=== PATIENT | male | born 1975 | race African-American/Black ===

== ENCOUNTER 2016-03-04 01:56 | Emergency (ER) | payer OTHER, MEDICARE ==
[~2016-03-04] VITALS: Ht 172.7 cm; Wt 99.8 kg
[~2016-03-04 01:56] MED LIST: BENTYL20 MG PO; FLEXERIL10 MG PO; IBUPROFEN800 MG PO; MEDROL DOSEPAK1 PAC PO; MOTRIN 600 MG600 MG PO; MOTRIN800 MG PO; NORCO 325 MG-51 TAB PO; PERCOCET 325 MG1 TA2 PO; SKELAXIN800 MG PO; TORADOL10 MG PO; TRAMADOL50 MG PO; ZOFRAN4 M1 SL
--- NOTE | 2016-03-04 02:08 | ED SKIN/ALLERGY COMPLAINT ---
History of Present Illness General Chief Complaint: Allergy Symptoms Stated Complaint: ALLERGIC REACTION? Source: patient, family Exam Limitations: no limitations Vital Signs & Intake/Output Vital Signs & Intake/Output Vital Signs Date Time Temp Pulse Resp B/P Pulse O2 O2 Flow FiO2 Ox Delivery Rate 03/04 0634 98.6 83 18 130/76 99 Room Air 03/04 0546 95.1 71 16 111/58 99 Room Air 03/04 0225 98 Room Air 03/04 0206 95.4 107 18 161/75 95 Room Air Allergies Coded Allergies: NO KNOWN ALLERGIES (12/17/14) Reconcile Medications Epinephrine (Epipen) 0.3 MG/0.3 ML AUTO.INJCT 1 DOSE SQ PRN PRN ALLERGIC REACTION Ketorolac Tromethamine (Toradol) 10 MG TAB 1 TAB PO TID PAIN Metaxalone 800 MG TAB 1 TAB PO TID MUSCLE RELAXATION Methylprednisolone. (Medrol) 1 PAC PAC 1 PAC PO AD INFLAMMATION Prednisone 10 MG TABLET 1 TAB PO DAILY ALLERGIC REACTION TAKE 4 TABS FOR 3 DAYS THEN TAKE 3 TABS FOR 3 DAYS THEN TAKE 2 TABS FOR 3 DAYS THEN TAKE 1 TAB FOR 3 DAYS Triage Nurses Notes Reviewed? yes HPI: Patient comes in with an allergic reaction. Patient thinks that it is from the shrimp that he had this evening. Patient states that he had an allergic reaction and shrimp once approximately 5 years ago but has eaten chin % without any problems. Patient took 50 mg of Benadryl and comes in for evaluation. Patient is complaining of a diffuse rash and swelling to his tongue shortness of breath. Patient denies any chest pain or chest tightness. There is no nausea or vomiting. There's no abdominal pain. Past History Travel History Traveled to [place] past 21 day No Medical History Any Pertinent Medical History? see below for history Neurological: NONE EENT: NONE Cardiovascular: hyperlipidemia Respiratory: bronchitis Gastrointestinal: GERD Hepatic: NONE Renal: NONE Musculoskeletal: disk herniation, osteoarthritis Psychiatric: NONE Endocrine: NONE Blood Disorders: NONE Cancer(s): NONE MORTGAGE CLERK/Reproductive: NONE Surgical History Surgical History: non-contributory, N Psychosocial History What is your primary language Cam[place]onian Tobacco Use: Never used ETOH Use: occasional use Illicit Drug Use: denies illicit drug use Family History Hx Contributory? No Review of Systems Review of Systems Constitutional: Reports: no symptoms. EENTM: Reports: see HPI, throat swelling. Respiratory: Reports: see HPI, cough, short of breath. Cardiovascular: Reports: no symptoms. GI: Reports: no symptoms. Genitourinary: Reports: no symptoms. Musculoskeletal: Reports: no symptoms. Skin: Reports: see HPI, rash. Neurological/Psychological: Reports: no symptoms. Hematologic/Endocrine: Reports: no symptoms. Immunologic/Allergic: Reports: no symptoms. All Other Systems: Reviewed and Negative Physical Exam Physical Exam General Appearance: well developed/nourished, alert, awake, anxious, severe distress Head: atraumatic, normal appearance Eyes: Bilateral: PERRL, EOMI. Ears, Nose, Throat: TONGUE SWELLING Neck: normal inspection, supple, full range of motion, NO STRIDOR Respiratory: normal breath sounds, chest non-tender, no respiratory distress, lungs clear Cardiovascular: regular rate/rhythm, normal peripheral pulses Gastrointestinal: normal bowel sounds, soft, non-tender, no organomegaly Back: normal inspection, normal range of motion Extremities: normal inspection, normal capillary refill, normal range of motion, no edema Neurologic/Psych: no motor/sensory deficits, awake, alert, oriented x 3, normal mood/affect Skin: intact, normal color Skin Problem Location: generalized Skin Problem Character: urticarial Progress Differential Diagnosis: allergic reaction, anaphylaxis, angioedema Plan of Care: Current Medications Sig/Brook Start time Last Medication Dose Stop Time Status Admin Diphenhydramine HCl 50 MG ONCE ONE 03/04 329 UNVr (Benadryl) 03/04 330 Aggressive treatment (LAURA MONTEMAYOR,ALEXANDR Flores) Comments: Patient is feeling much better. Patient continues to have a diffuse rash and itching but states that his tongue is much improved and is no longer having any difficulty breathing. Departure Departure Disposition: HOME OR SELF CARE Condition: Stable Clinical Impression Primary Impression: Anaphylaxis Referrals: SARAH MOSLEY DO (PCP/Family) Additional Instructions: TAKE BENADRYL NEEDED. TAKE PREDNISONE PRESCRIBED. RETURN IF SYMPTOMS WROSEN OR FOR ANY CONCERNS. Departure Forms: Customer Survey General Discharge Information Prescriptions: Current Visit Scripts Prednisone 1 TAB PO DAILY #30 TAB TAKE 4 TABS FOR 3 DAYS THEN TAKE 3 TABS FOR 3 DAYS THEN TAKE 2 TABS FOR 3 DAYS THEN TAKE 1 TAB FOR 3 DAYS Epinephrine (Epipen) 1 DOSE SQ PRN PRN ALLERGIC REACTION #1 Critical Care Note Critical Care Note Critical Care Time: mins: (45 MIN)
[2016-03-04] MEDS ORDERED: EPIPEN0.3 MG/0.1 SQ (03:30)
[2016-03-04] MEDS ORDERED: PREDNISONE10 M2 PO (03:30)
[2016-03-04 06:34] VITALS: BP 130/76
== END 2016-03-04 06:35 ==
LOC: ERH 01:56
DX: T78.02XA Anaphylactic reaction due to shellfish (crustaceans), initial encounter (principal)
CPT/HCPCS: 96361; 96372; 96374; 96375; 96376; 99291; J0171; J1200; J2405; J2930